=== PATIENT | male | born 1980 | race Caucasian/White ===

== ENCOUNTER 2016-11-18 20:57 | Emergency (ER) | payer BC, SELFPAY ==
--- NOTE | 2016-11-18 22:19 | RAD ---
THREE VIEWS RIGHT SHOULDER: Indication: Right shoulder injury after appliance landed on shoulder. Comparison: None. FINDINGS: No acute fracture or subluxation is evident. AC joint and glenohumeral joint appear within normal li mits. Visualized right lung is clear. IMPRESSION: No acute osseous abnormality. POS: [facility]
--- NOTE | 2016-11-18 22:44 | RAD ---
AP CHEST: Indication: Chest pain after having refrigerator land on the patient's right shoulder. Comparison: Two view chest 06-17-13 FINDINGS: There is a small azygous fissure involving the right upper lobe. The lungs are clear. Cardiomediasti nal silhouette is normal. No acute osseous abnormality is evident. IMPRESSION: No acute cardiopulmonary abnormalities. POS: [facility]
--- NOTE | 2016-11-18 23:05 | RAD ---
TWO VIEWS LUMBAR SPINE: Indication: Back pain after refrigerator landed on the patient. Comparison: None. FINDINGS: No acute fracture or subluxation is evident. Spinal alignment is preserved. Vertebral body heights a re normal appearing. IMPRESSION: Radiographically normal appearing lumbar spine. POS: [facility]
--- NOTE | 2016-11-18 23:05 | RAD ---
FOUR VIEWS OF THE THORACIC SPINE: Indication: Thoracic spinal injury after having a refrigerator land on the patient. FINDINGS: No acute fracture or subluxation is evident. Paraspinal alignment is preserved. IMPRESSION: No acute osseous abnormality. POS: [facility]
[2016-11-18] MEDS ORDERED: HYDROcodone/Acetaminophen 5/325 mg Tablet ONE (23:38)
== END 2016-11-18 23:33 | disposition home or self-care (01) ==
LOC: ERS 20:57
DX: S46.001A Unspecified injury of muscle(s) and tendon(s) of the rotator cuff of right shoulder, initial encounter (principal); M54.5 Low back pain; J45.909 Unspecified asthma, uncomplicated; I10 Essential (primary) hypertension; E78.00 Pure hypercholesterolemia, unspecified; F41.9 Anxiety disorder, unspecified; Z85.47 Personal history of malignant neoplasm of testis; X50.0XXA Overexertion from strenuous movement or load, initial encounter
CPT/HCPCS: 71010; 72072; 72100; 96374; 96376; J1170

== ENCOUNTER 2016-12-04 07:56 | Emergency (ER) | payer BC ==
[2016-12-04] MEDS ORDERED: cloNIDine 0.1mg/24 Hour PATCH TD SCH (09:00)
[2016-12-04 10:27] LABS: Bilirubin Small (Negative); Blood, Urine Negative (Negative); Glucose, Urine (Dipstick) Negative (Negative); Ketone, Urine 80 mg/dL (Negative); Nitrite Negative (Negative); Protein, Urine (Dipstick) Trace mg/dL (Neg-Trace); Urobilinogen 0.2 mg/dL (0.2-1.0)
[2016-12-04 10:38] LABS: Amphetamine Not Detected (NotDetected); Methadone Not Detected (NotDetected); Methamphetamine Not Detected (NotDetected)
== END 2016-12-04 10:33 | disposition home or self-care (01) ==
LOC: ERS 07:56
DX: F11.23 Opioid dependence with withdrawal (principal); J45.909 Unspecified asthma, uncomplicated; I10 Essential (primary) hypertension; E78.00 Pure hypercholesterolemia, unspecified; F41.9 Anxiety disorder, unspecified; F17.200 Nicotine dependence, unspecified, uncomplicated; Z79.899 Other long term (current) drug therapy
CPT/HCPCS: 80306; 81003; 99284

== ENCOUNTER 2017-01-23 17:57 | Emergency (ER) | payer BC | END 2017-01-23 19:41 | disposition home or self-care (01) | LOC: ERS 17:57 | DX: H61.23 Impacted cerumen, bilateral (principal); R21 Rash and other nonspecific skin eruption; J45.909 Unspecified asthma, uncomplicated; I10 Essential (primary) hypertension; E78.00 Pure hypercholesterolemia, unspecified; F41.9 Anxiety disorder, unspecified; F17.210 Nicotine dependence, cigarettes, uncomplicated; Z79.899 Other long term (current) drug therapy | CPT/HCPCS: 87081; 87430; 99283 ==